=== PATIENT | male | born 1965 | race Caucasian/White ===

== ENCOUNTER 2022-10-10 20:36 | Emergency (ER) | payer MEDICAID ==
[~2022-10-10] VITALS: Ht 175.3 cm; Wt 104.5 kg
[2022-10-10 20:38] VITALS: BP 160/112
[2022-10-10] MEDS ORDERED: sulfamethoxazole/trimethoprim DS (800/160mg) tablet PO ONE (21:15)
[2022-10-10] MEDS ORDERED: SULF1TAB45 PO (21:18)
== END 2022-10-10 21:27 | disposition home or self-care (01) ==
LOC: ER 20:37
DX: S60.451A Superficial foreign body of left index finger, initial encounter (principal); X58.XXXA Exposure to other specified factors, initial encounter; Y93.89 Activity, other specified; Y92.89 Other specified places as the place of occurrence of the external cause; Y99.8 Other external cause status
CPT/HCPCS: 99284